=== PATIENT | female | born 1985 | race African-American/Black ===

== ENCOUNTER 2020-03-22 11:16 | Emergency (ER) | payer MEDICAID, OTHER ==
[~2020-03-22] VITALS: Ht 160 cm; Wt 73.9 kg
[2020-03-22 11:26] VITALS: BP 123/77
[2020-03-22] MEDS ORDERED: KETOROLAC TROMETH 60MG/2ML VIAL IM ONE (14:00)
== END 2020-03-22 15:06 | disposition home or self-care (01) ==
LOC: ER 11:16
DX: M54.16 Radiculopathy, lumbar region (principal)
CPT/HCPCS: 96372; 99283; J1885